=== PATIENT | male | born 1955 | race Caucasian/White ===

== ENCOUNTER → 2016-03-04 | Outpatient (CLI) | payer BC ==
[~2016-03-04] MED LIST: ATOR-26 PO; DOCU100C31 PO; METO25TA56 PO; TAMS0.4C38 PO; lisinopril/hctz PO
[2016-03-04 14:33] LABS: ALT/SGPT 33 U/L (12-78); BLOOD UREA NITROGEN 12 mg/dl (7-18); BUN/CREATININE RATIO 10.5 (10-20); CALCIUM 9.3 mg/dl (8.5-10.1); CARBON DIOXIDE 33 mmol/L (21-32); CHLORIDE 100 mmol/L (98-107); CHOLESTEROL 162 mg/dl (0-200); GLUCOSE 94 mg/dl (70-99); POTASSIUM 3.7 mmol/L (3.5-5.1); SODIUM 142 mmol/L (136-145); TRIGLYCERIDES 106 mg/dl (0-150); VERY LOW DENSITY LIPOPROT CALC 21 mg/dl
[2016-03-04 14:39] LABS: AST/SGOT 19 U/L (15-37); CHOLESTEROL/HDL RATIO 3.4; HDL CHOLESTEROL 47 mg/dl; LDL CHOLESTEROL CALCULATED 94 mg/dl; PROSTATE SPECIFIC ANTIGEN 0.644 ng/ml (0.000-4.000)
== END | disposition home or self-care (01) ==
LOC: C.LABBC 09:09
PROVIDERS: ATTEND Internal Medicine
DX: E78.5 Hyperlipidemia, unspecified (principal); I10 Essential (primary) hypertension; N40.0 Benign prostatic hyperplasia without lower urinary tract symptoms; N50.9 Disorder of male genital organs, unspecified

== ENCOUNTER 2023-01-30 09:09 | Observation (INO) ==
--- NOTE | 2023-01-01 09:46 | PAT Medication Instructions ---
Medication Instructions Date of Service January 01, 2023 Home Medications Medication Instructions Recorded atorvastatin 80 mg tablet 80 mg PO QPM #90 tabs 02/11/22 metoprolol tartrate 25 mg tablet 25 mg PO BID #180 tabs 02/11/22 aspirin 81 mg tablet,delayed release 81 mg PO QAM atorvastatin 80 mg tablet 80 mg PO QPM metoprolol tartrate 25 mg tablet 25 mg PO BID sildenafil 50 mg tablet 50 mg PO UD PRN amlodipine 5 mg tablet 5 mg PO DAILY [id number]-igmdhciqonwpy-gqhwwlsi 250 mg-250 mg-65 mg tablet (Excedrin Extra Strength) 1 - 2 tab PO Q6H PRN lisinopril 20 mg tablet 20 mg PO QAM multivitamin 1 cap PO DAILY Continue as directed amlodipine 5 mg tablet 5 mg PO DAILY ASK your surgeon for instructions [id number]-[id number]-rpozjtmz 250 mg-250 mg-65 mg tablet (Excedrin Extra Strength) 1 - 2 tab PO Q6H PRN ASK your prescriber and surgeon aspirin 81 mg tablet,delayed release 81 mg PO QAM DO NOT take the morning of surgery sildenafil 50 mg tablet 50 mg PO UD PRN lisinopril 20 mg tablet 20 mg PO QAM multivitamin 1 cap PO DAILY Take morning of surgery With a small sip of water, OTHERWISE NOTHING TO EAT OR DRINK AFTER MIDNIGHT: metoprolol tartrate 25 mg tablet 25 mg PO BID Take evening before surgery atorvastatin 80 mg tablet 80 mg PO QPM metoprolol tartrate 25 mg tablet 25 mg PO BID Other Notes If you have any questions please call us at [phone] or [phone] or [phone] or [phone]
--- NOTE | 2023-01-06 12:14 | Anesthesiology Consultation ---
Date of Service January 06, 2023 Assessment & Plan (1) Encounter for pre-operative examination: - Infectious disease screening: Per assessment on 12/30/22: No known infectious disease contacts or current infectious disease symptoms (does report chronic issues with congestion at baseline- no recent changes). No noted Covid positive test result in past 90 days. - Outpatient joint assessment: Pt currently scheduled for inpatient pathway. If surgeon requests review for outpatient joint pathway, patient is not recommended candidate for outpatient joint program from anesthesia standpoint based on available information. - Cardiology visit (09/29/22): "..Known chronic total occlusion of the RCA. No anginal symptoms. His blood pressure and heart rate are at target. He will continue aspirin 81 mg daily, atorvastatin 80 mg daily, lisinopril 20 mg daily, and metoprolol tartrate 25 mg p.o. twice daily. He is not taking Ranexa at this time. He will keep the medication in case he has onset of angina.. High intensity statin therapy ongoing with atorvastatin 80 mg daily. We will check annual lipid panel.. Hypertension.. Blood pressure is very well controlled at this time. Continue lisinopril, amlodipine, and metoprolol at current doses" - Hyperkalemia: Potassium 5.4 on preop labs. Workload note written to PCP regarding hyperkalemia. PCP response (01/06/23): "Please inform patient potassium was high on today's bloodwork. Ensure he is not taking any potassium supplements (if so should stop). Encourage him to increase hydration and limit high potassium foods (potatoes tomatoes bananas oranges). Ask him to recheck blood work in 1 week. Please order renal function panel for one week from today. If K remains high on recheck, we may need to adjust lisinopril. Otherwise, if normalizes, no need to change" > Awaiting PCP-ordered repeat labs. Chart Review Chart Review: Patient seen in Pre Admission Testing Teaching & Discussion Pre-Anesthesia Teaching/Discussion Notes: Instructed NPO after midnight before surgery,except medications with 15 cc of water. Medication instructions provided according to the PAT guidelines. History Surgery Operation Date: 01/30/23 09:00 Proposed Procedures p Left Reverse Total Shoulder Arthroplasty - Syed Powell, DO Height/Weight Height: 5 ft 11 in Weight: 80.3 kg Allergies Allergy/AdvReac Type Severity Reaction Status Date / Time No Known Allergies Allergy Verified 12/30/22 13:29 Medications Home Medications Medication Instructions Recorded Confirmed Last Taken aspirin 81 mg tablet,delayed 81 mg PO QAM 02/11/22 12/30/22 Unknown release atorvastatin 80 mg tablet 80 mg PO QPM #90 tabs 02/11/22 12/30/22 Unknown metoprolol tartrate 25 mg tablet 25 mg PO BID #180 tabs 02/11/22 12/30/22 Unknown sildenafil 50 mg tablet 50 mg PO UD PRN Sexual Activity 09/29/22 12/30/22 Unknown amlodipine 5 mg tablet 5 mg PO DAILY 12/30/22 12/30/22 Unknown bupatle-jksacyxwdntjx-pptwinph 250 1 - 2 tab PO Q6H PRN headaches 12/30/22 12/30/22 Unknown mg-250 mg-65 mg tablet (Excedrin Extra Strength) lisinopril 20 mg tablet 20 mg PO QAM 12/30/22 12/30/22 Unknown multivitamin 1 cap PO DAILY 12/30/22 12/30/22 Unknown Past Medical History Medical History Nasal congestion Chronic, previous ENT evaluation No change from baseline Osteoarthritis Torn muscle + calcium buildup (left shoulder) Bladder diverticulum Coronary artery disease Cardiac cath 03/2022 (Positive stress test, [place])- Chronic total occlusion of the RCA with distal collateralization to the PDA and posterolateral branch (consistent with findings on stress test), Mild nonocclusive CAD in left coronary system. Medical management recommended. Hyperlipidemia HTN (hypertension) Claustrophobia Tubular adenoma of colon Hx Exercise / Class Metabolic Activity II 4-5 Yardwork/Stairs/Walk up hill (2 miles on treadmill walking/day) Past Family History Family History Mother Myocardial infarction Ovarian cancer Uncle Stroke Denies family history of Prostate cancer Breast cancer Lung cancer Colorectal cancer Past Surgical History Surgical History History of eye surgery PRK (Rx1, Lx2) History of transurethral resection of prostate History of cardiac cath 03/2022 (Positive stress test, [place])- Chronic total occlusion of the RCA with distal collateralization to the PDA and posterolateral branch (consistent with findings on stress test), Mild nonocclusive CAD in left coronary system. Medical management recommended. H/O tooth extraction H/O colonoscopy Past Anesthesia History No Hx of Anesthesia Complications and No Family Hx of Anesthesia Complications History of PONV No Hx of PONV and No Hx of Motion Sickness Social History Smoking Status: Never smoker Do You Dip or Chew Tobacco: Yes (2 pouches daily- Advised none DOS) Hx Alcohol Use: Yes (Hx social- none current) Hx Substance Use: No substance use type: does not use Review of Systems Hx heart palpitations- no recent issues. Chronic congestion- unchanged, at baseline. Patient denies chest pain, shortness of breath, dyspnea on exertion, fever, chills, cough, wheezing. Physical Exam Vital Signs VITALS BP 117/71 P 70 TEMP 98.5 SP02 98%RA RESP 18 PHYSICAL Full cervical extension range of motion. Full TMJ range of motion. TMD 3 finger breaths Mallampati Score 1 Dentition: upper full denture plate, edentulous Lungs: clear throughout to auscultation Cardiac: regular rate and rhythm, no murmurs noted Spine: normal Carotid arteries: negative bruit Extremities: no LE edema Short zepeda (advised to trim/clean prior to surgery) Lab Results Anesthesia Preop Results Results Anesthesia Widget: WBC 7.55 K/ul (4.8-10.8) 01/06/23 Hgb 15.5 g/dl (14.0-18.0) 01/06/23 Hct 45.6 % (42.0-52.0) 01/06/23 Plt 190 K/uL (130-400) 01/06/23 Na 137 mmol/L (136-145) 01/06/23 K 5.4 mmol/L (3.5-5.1) H 01/06/23 Cl 102 mmol/L (98-107) 01/06/23 CO2 31 mmol/L (21-32) 01/06/23 BUN 10 mg/dl (6-23) 01/06/23 Creat 0.95 mg/dl (0.6-1.4) 01/06/23 Glucose Level 95 mg/dl (70-99(Fasting)) 01/06/23 PT 11.3 Seconds (9.0-12.0) 01/06/23 PTT 28.0 Seconds (21.0-31.0) 01/06/23 INR 1.0 (0.9-1.1) 01/06/23 Blood Type B Positive 01/06/23 Antibody Screen NEGATIVE 01/06/23 Testing Electrocardiogram Date: 06/23/22 Findings: + NSR @ (81) Chest X-Ray Date: 01/06/23 Findings: + NAD Echocardiogram Date: 03/24/22 "This was essentially a normal study " EF 50-55%. Borderline apical wall hypokinesis. Mild [place]. Cardiac Catheterization Date: 03/27/22 Summary: 1. Chronic total occlusion of the RCA with distal collateralization to the PDA and posterolateral branch. This is consistent with findings on stress test. 2. Mild nonocclusive coronary disease in the left coronary system. 3. Recommend guideline directed medical therapy for secondary prevention of coronary disease to include; low-dose aspirin, high intensity statin therapy, beta-patrice, and DAYRON inhibitor/ARB as tolerated. In addition, recommend titrating up the antianginal regimen to try to reduce his symptoms. Other Testing Carotid doppler Date: 02/24/22 <50% B/L ICA stenosis. Antegrade flow b/l vertebral arteries. Exercise stress Date: 03/03/22 1. Exercise stress test to 95% MPHR negative for chest pain. 2. ST depressions and ST changes following exercise are diagnostic of myocardial ischemia. 3. Hemodynamic response to exercise was normal. 4. No exercise induced arrhythmias. Myocardial stress test Date: 03/11/22 1. Raw data analysis demonstrates increased gallbladder uptake and mild anterior soft tissue attenuation. This is a good quality study. 2. Gated MPI demonstrates normal wall motion and EF of 64% 3. There is a large in size, mild intensity, partially reversible MPI defect involving the inferior, inferoseptal, inferolateral, and apical myocardium. These findings suggest myocardial infarction with mild to moderate wendi-infarct ischemia. Summary: This is considered an intermediate to high risk stress test. No prior MPI studies for comparison. Recommend consider definitive evaluation by coronary angiography. Discussed with cardiology. Cardiac Event monitor Date: 04/17/22 Analysis length: 13-days. Rare PACs/rare PVCs. ST (max 141bpm). SB (min 41bpm). No pauses > 2 secs or high grade AVB. Reported chest pain, fatigue 2 times which correlated to NSR.
[~2023-01-30 09:09] MED LIST changes: +ACETAMINOPHEN 500 MG TAB PO SCH; -ATOR-26 PO; +BUPIVACAINE 0.5 % 5 MG/1 ML PF 10ML VIAL ONE; -DOCU100C31 PO; +FAMOTIDINE 20 MG TAB PO SCH; +GABAPENTIN 300 MG CAP PO SCH; +LR 15ML/HR IV SCH; +LR 60ML/HR IV SCH; -METO25TA56 PO; +ORTHO JOINT MIX INFIL SCH; -TAMS0.4C38 PO; +TRANEXAMIC ACID 1,000 MG **IV Intra-op IV SCH; +TRANEXAMIC ACID 1,000 MG **IV Pre-op IV SCH; +ceFAZolin 2000MG 2,000 MG/15 ML SYR IV SCH; +dexAMETHasone 4 MG TAB PO SCH; -lisinopril/hctz PO
[2023-01-30] MEDS ORDERED: LIDOCAINE 2% 2 ML VIAL/AMP(20MG/ML) INFIL ONE (09:19)
[2023-01-30] MEDS ORDERED: MIDAZOLAM HCL 1 MG/ML 2ML VIAL ONE (09:19)
[2023-01-30] MEDS ORDERED: PROPOFOL IV EMULSION 10 MG/ML 20 ML VIAL IV ONE (09:19)
[2023-01-30] MEDS ORDERED: ONDANSETRON INJ 2 MG/ML 2 ML VIAL ONE (09:20)
[2023-01-30] MEDS ORDERED: fentaNYL citrate PF 100 MCG/2 ML VIAL ONE (09:20)
--- NOTE | 2023-01-30 09:38 | History & Physical Bridge Note ---
Date of Service January 30, 2023 History & Physical Bridge Note I have examined the patient, reviewed the History & Physical and in the interval since the performance of the History & Physical I have noted the following changes of clinical significance: no changes noted
[2023-01-30] MEDS ORDERED: ORTHO JOINT ANESTHETIC ONE (09:59)
[2023-01-30] MEDS ORDERED: PROMETHAZINE HCL 6.25 MG in SODIUM CHLORIDE 0.9% 50 ML IV PRN (10:28)
[2023-01-30] MEDS ORDERED: ATROPINE SULFATE 0.1 MG/ML 10ML SYR IV PRN (10:28)
[2023-01-30] MEDS ORDERED: KETOROLAC 30 MG/ML VIAL IV PRN (10:28)
[2023-01-30] MEDS ORDERED: fentaNYL citrate PF 100 MCG/2 ML VIAL IV PRN (10:28)
[2023-01-30] MEDS ORDERED: PHENYLEPHRINE HCL 10 MG/ML VIAL ONE (11:01)
[2023-01-30] MEDS ORDERED: ePHEDrine sulfate 50 MG/ML AMP ONE (11:01)
[2023-01-30] MEDS ORDERED: ROCURONIUM BROMIDE 10 MG/ML 5 ML VIAL IV ONE (11:01)
--- NOTE | 2023-01-30 11:44 | Operative Report ---
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 A tenodesis was opted. This was a separate and distinct portion of the procedure. For these reasons, a CPT code modifier 59 will be added to this case. Implants used: I used a [employer] Comprehensive reverse total shoulder arthroplasty system with a size 11 press fit micro humeral stem, a +3 offset humeral tray and a standard humeral bearing, a 25 mm baseplate with a 6.5 mm central screw and superior and inferior locking screws, and a size 36 mm eccentric glenosphere. Venkat arrived at [facility] for the above procedure. He was seen in the preoperative holding area and the operative extremity was identified and signed. He was given a preoperative antibiotic, TXA, and an interscalene nerve block. He was taken back to the operating room, laid on table in supine position, and put under general anesthesia. He was then put into the beachchair position. The shoulder was then prepped and draped in sterile fashion. A timeout was done and the patient and the operative extremity was properly identified. A deltopectoral approach was used. Dissection was taken down through the fascia and the deltoid was retracted laterally and the conjoined tendon was retracted medially. The anterior shoulder was exposed. The biceps groove was opened up and the biceps tendon was examined extensively. The biceps tendon demonstrated enlargement and inflammatory changes consistent with longstanding inflammation in the context of osteoarthritis and cuff arthropathy. The long head of the biceps tendon was then tenodesed to the upper border of the pectoralis major. This was a separate and distinct portion of the procedure. The subscapularis was then directly released off the lesser tuberosity with a peel technique. The inferior capsule was released and the humeral head was dislocated. A canal finding reamer was sent down the center of the humeral canal. Sequential reaming up to a size 11 reamer was done. Off that reamer, a proximal humeral resection guide was placed. The proximal humerus was resected at 135 of inclination and 25 of retroversion. Osteophytes were then removed and the glenoid was exposed. Time was spent doing a complete capsular and labral release. The glenoid guide was then placed in the inferior aspect of the glenoid. A 3.2 mm Steinmann pin was then placed into the glenoid vault at 10 of inclination. The glenoid baseplate was then reamed. The final size 25 mm baseplate was then impacted in the place. A 6.5 mm central screw was then placed followed by superior and inferior locking screws. A 36 mm eccentric glenosphere was then impacted into place. Surrounding soft tissues were then injected with 100 cc an orthopedic pain control cocktail. The proximal humerus was then exposed. Sequential broaching of the humerus up to a size 11 broach was done. Off that broach a +3 offset humeral tray was trialed. The shoulder was then reduced, brought through a full range of motion, and felt to be stable. The shoulder was then dislocated and the broach was removed. The final size 11 micro press-fit humeral stem was then impacted into place. A standard humeral bearing was then snapped onto a +3 offset humeral tray. The humeral tray was then impacted onto the humeral stem. The shoulder was once again reduced, brought through a full range of motion, and felt to be stable. The subscapularis was then tenodesed back to the lesser tuberosity with transosseous FiberWire sutures and side to side sutures with the arm in 45 of external rotation. A dilute betadyne lavage was then done for 3 minutes. The joint was then irrigated with normal saline solution. Hemostasis was obtained. The interval was closed with 2-0 Vicryl suture. The skin was then closed with 2-0 Vicryl and timi. A Silverlon dressing was placed and the arm was rested in a regular arm sling. He was then extubated and transferred to a hospital bed. He taken to the postanesthesia care unit in stable condition. He tolerated the procedure well. Syed Parekh PA-C, was present for the entire procedure. He was critical for patient positioning, prepping, draping, retraction exposure, wound closure and application of sterile dressing. I attest to the content of the Intraoperative Record and any orders documented therein. Any exceptions are noted below.
[2023-01-30] MEDS ORDERED: GLYCOPYRROLATE 0.2 MG/ML VIAL ONE (11:48)
[2023-01-30] MEDS ORDERED: NEOSTIGMINE METHYLSULFATE 1 MG/ML 10ML VIAL ONE (11:48)
--- NOTE | 2023-01-30 12:16 | XRay Report ---
LEFT SHOULDER 2 VIEWS CLINICAL HISTORY: Postoperative examination. FINDINGS: 2 portable views of the left shoulder are compared to study dated 09/29/2022. A left shoulde r arthroplasty is in near anatomic alignment. No acute fracture is seen. The acromioclavicular joint is maintained. Skin clips, subcutaneous gas, and soft tissue swelling overlying the left shoulder are expected postsurgical changes. The visualized left lung parenchyma appears clear. IMPRESSION: Expected postoperative findings status post left shoulder arthroplasty. No acute fracture is seen. Electronically signed by: Luis Miguel Aggarwal M.D. 01/30/2023 12:14 PM
--- NOTE | 2023-01-30 12:48 | Anesthesiology Progress Note ---
Date of Service January 30, 2023 Anesthesia Post Procedure Vital Signs Vital Signs: Temp Pulse Resp BP Pulse Ox O2 Del Method O2 Flow Rate 01/30/23 12:30 36.3 C L 63 16 117/60 95 Room Air 01/30/23 12:20 70 16 127/63 94 Oxymask 4 01/30/23 12:10 76 16 120/60 100 Oxymask 6 01/30/23 12:03 36.1 C L 83 16 124/77 96 Oxymask 6 01/30/23 09:58 36.8 C 59 L 18 136/76 100 Room Air Transfer of Care Handoff Completed per policy Notes Mental Status: alert / awake / arousable Patient Amnestic to Procedure: Yes Nausea / Vomiting: adequately controlled Pain: adequately controlled Airway Patency, RR, SpO2: stable & adequate BP & HR: stable & adequate Hydration State: stable & adequate Anesthetic Complications: no major complications apparent
[2023-01-30] MEDS ORDERED: MAGNESIUM HYDROXIDE SUSP 30 ML UDC PO PRN (13:07)
[2023-01-30] MEDS ORDERED: oxyCODONE HCL IR 5 MG TAB (IMMEDIATE RELEASE) PO PRN (13:07)
[2023-01-30] MEDS ORDERED: METOCLOPRAMIDE HCL INJ 5 MG/ML 2 ML VIAL IV PRN (13:07)
[2023-01-30] MEDS ORDERED: NALOXONE HCL 0.4 MG/1 ML VIAL/CARP IV PRN (13:07)
[2023-01-30] MEDS ORDERED: bisacodyL 10 MG SUPP PR PRN (13:07)
[2023-01-30] MEDS ORDERED: ONDANSETRON INJ 2 MG/ML 2 ML VIAL IV PRN (13:07)
[2023-01-30] MEDS ORDERED: HYDROmorphone INJ 0.5 MG/0.5 ML SYR IV PRN (13:07)
[2023-01-30] MEDS ORDERED: COUGH DROP (SUGAR FREE) LOZ 24 LOZ/1 BOX BUCCAL ONE (13:20)
[2023-01-30] MEDS: KETOROLAC 30 MG/ML VIAL IV SCH ×2 (14:06→19:38)
[2023-01-30] MEDS: SODIUM CHLORIDE 0.9% 1,000 ML IV SCH (14:06)
[2023-01-30] MEDS: ACETAMINOPHEN 500 MG TAB PO SCH ×2 (14:06→21:16)
[2023-01-30] MEDS: ceFAZolin 2000MG 2,000 MG/15 ML SYR IV SCH (17:25)
[2023-01-30] MEDS ORDERED: SENNA 8.6 MG TAB PO SCH (21:00)
[2023-01-30] MEDS ORDERED: ATORVASTATIN 40 MG TAB PO SCH (21:00)
[2023-01-30] MEDS: METOPROLOL TARTRATE 25 MG TAB PO SCH (21:16)
[2023-01-30] MEDS: DOCUSATE SODIUM 100 MG CAP PO SCH (21:17)
[2023-01-31] MEDS: ceFAZolin 2000MG 2,000 MG/15 ML SYR IV SCH (01:11)
[2023-01-31] MEDS: KETOROLAC 30 MG/ML VIAL IV SCH ×2 (01:11→06:35)
[2023-01-31] MEDS: SODIUM CHLORIDE 0.9% 1,000 ML IV SCH (01:24)
[2023-01-31] MEDS: ACETAMINOPHEN 500 MG TAB PO SCH (05:56)
[2023-01-31] MEDS ORDERED: TAMSULOSIN HCL 0.4 MG CAP PO ONE (06:30)
--- NOTE | 2023-01-31 06:58 | Orthopedic Progress Note ---
Date of Service January 31, 2023 Assessment & Plan (1) Status post reverse total replacement of left shoulder: Overall he is doing well. He is not having much pain in the left shoulder. He has been up and ambulating. He will be seen by physical therapy today for ambulation and range of motion exercises. He has been voiding a little bit on his own. He has not been voiding completely but he has had this issue before. He says he feels safe going home today. His is an RN and can help him at home. We will discharge him to home today. He will follow-up with orthopedics in 2 weeks. Isidro Robledo was seen and examined at bedside this morning. Overall is doing fairly well. Is not having much pain in the left shoulder. Has been up and ambulating in the hallways. He did have a little trouble voiding last night. He was given some Flomax. Otherwise, he has no complaints.. Review of Systems All systems reviewed & are unremarkable except as noted in HPI & below. Physical Exam On physical examination left shoulder, the dressing is clean and dry. He is wearing his sling as instructed. He has active motion of his hand and his wrist.. Results & Data Results & Data Laboratory Results . Diagnostic Findings X-rays of the left shoulder show the prosthesis to be in anatomic alignment without any evidence of fracture complication, or loosening.. PG Care Time/CCT Total # of Minutes Spent Total Time Spent with Patient: Total time spent is greater than 50% in coordination of care (as documented) at patient's floor/unit and/or counseling patient: Coding Level of Care Code 34196 Post Operative Follow-Up Diagnoses Status post reverse total replacement of left shoulder Z96.612
--- NOTE | 2023-01-31 06:59 | Discharge Summary ---
Date of Service January 31, 2023 Principal Diagnosis Same as "Discharge Diagnosis" noted below under Discharge Instructions. Discharge Exam On physical examination left shoulder, the dressing is clean and dry. He is wearing his sling as instructed. He has active motion of his hand and his wrist.. Discharge Data Procedures Performed Operation Date: 01/30/23 11:00 Actual Procedures p Left Reverse Total Shoulder Arthroplasty(Left) - Syed Powell DO Ordered Studies 01/30/23 05:00 US - OR guided needle placemen Routine Hospital Course (1) Status post reverse total replacement of left shoulder: On January 30, 2023 Venkat arrived at [facility] and underwent a left reverse shoulder replacement without complication. He had a general anesthetic and a left interscalene nerve block. Postoperatively he was placed in an arm sling and transferred to the general orthopedic floors. His hospital course was uneventful. He had his little trouble voiding the first night. He was given some Flomax and that did help some. On postop day #1, his vital signs were stable and his pain was well-controlled. He was able to participate well with physical therapy doing ambulation and range of motion exercises. He was then discharged home. He will follow-up with orthopedics in 2 weeks. PG Care Time/CCT Total # of Minutes Spent Total Time Spent with Patient: Total time spent is greater than 50% in coordination of care (as documented) at patient's floor/unit and/or counseling patient: Discharge Plan Discharge Items Patient Disposition: Home - Self-Care Reason For Visit: Degenerative Joint Disease Left Shoulder Discharge Diagnosis: Left reverse shoulder replacement Activity: Per Instructions section Non-emergency contact: Surgeon Call non-emergency contact if: your wound has increased redness and your wound has increased drainage Follow-up/Referrals: Kenzie Vega MD [Primary Care Provider] - Diet: Regular Addtl Attending Provider Instructions: Activity and Therapy Recommendations: * If you are using [facility] then therapy will be provided at your home until they feel you have accomplished all of your goals. * If you are using [facility] then Physical Therapy will be provided until they feel you are ready to start Outpatient Physical Therapy. * If you are not using home therapy then Outpatient Physical Therapy should start about 3-5 days from your day of surgery. Therapy will last about 8-12 weeks * Wear your sling for 3 weeks, unless otherwise instructed. You may remove your sling to shower and to dress, but otherwise, you should be in your sling at all times, including while sleeping * The shoulder replacement is very stable and you can use your hand while in the sling * You were shown a series of exercises in the hospital. Do these exercises daily including the exercises you were shown in physical therapy. Medications: * Narcotic You will likely be sent home from the hospital with a prescription for the narcotic pain medication that worked best throughout your stay. * Cefadroxil -take the antibiotic twice a day for 10 days to help prevent infection. * Other medications may be prescribed for specific circumstances. If you have any questions, please call the office at . * Resume previous home medications unless otherwise instructed Dressing Care: Leave the Silverlon dressing in place for 7 days. After 7 days you may remove the dressing. If the incision is not draining then you may leave the timi open to air. If there is a little bit of drainage or if the timi are getting stuck on your clothing then cover the incision with a dry dressing. The timi will be removed at your 2 week follow-up appointment. Showering: You may shower with the Silverlon dressing in place. Do not let the shower spray hit the dressing directly. Pat the Silverlon dressing dry. If the dressing becomes wet underneath, then simply remove the dressing. Keep the incision dry until you are 7 days out from the day of surgery. After 7 days you may remove the Silverlon dressing and shower with the timi exposed. Let soapy water run over the timi and pat them dry. Do not scrub or soak the incision. Things To Watch For: * Drainage from the incision site that occurs more than one week after your surgery. * Increased redness at the incision site. * Fever above 102 degrees Fahrenheit. * Unusual chest pain or shortness of breath. * Call [facility] at with any of the above problems Follow-Up Visit: Follow-up with Dr. Powell's PA (Syed Parekh) 2-3 weeks after your day of surgery. He will remove your timi and answer any questions. If you have any additional questions or concerns, Dr Powell is usually in the office at the same time and will be available An appointment was probably scheduled when you signed-up for surgery in the office. If you have any questions call More detailed instructions as well as Frequently Asked Questions were provided in a folder by our office when you signed-up for surgery. Please review these instructions when you get home. If you have any further questions or concerns, please feel free to call the office at [phone] Pending Studies at Discharge: No Stand-Alone Forms: [facility], Sm[facility] Cessation Medications and DC Order Prescriptions: New oxycodone 5 mg Tablet 5 mg PO Q4H PRN (Reason: pain) Qty: 20 0RF Continued amlodipine 5 mg tablet 5 mg PO DAILY Qty: 90 0RF atorvastatin 80 mg tablet 80 mg PO QPM Qty: 90 0RF lisinopril 20 mg tablet 20 mg PO QAM Qty: 90 0RF metoprolol tartrate 25 mg tablet 25 mg PO BID Qty: 180 0RF sildenafil 50 mg tablet 50 mg PO UD PRN (Reason: Sexual Activity) aspirin 81 mg tablet,delayed release (DR/EC) 81 mg PO QAM multivitamin Capsule 1 cap PO DAILY Patient Comments: rare/not current Excedrin Extra Strength 250-250-65 mg Tablet 1 - 2 tab PO Q6H PRN (Reason: headaches) Discharge Orders: Discharge Order (Routine); Ordered 01/31/23 Ordered By: Syed Powell Admission Data Admit Date/Time: 01/30/23 11:59 Attending Provider: Syed Powell Admit Provider: Syed Powell Primary Care Provider: Kenzie Vega
[2023-01-31] MEDS ORDERED: dexAMETHasone 4 MG TAB PO SCH (08:00)
[2023-01-31] MEDS: METOPROLOL TARTRATE 25 MG TAB PO SCH (08:16)
[2023-01-31] MEDS: DOCUSATE SODIUM 100 MG CAP PO SCH (08:16)
[2023-01-31] MEDS ORDERED: MULTIVITAMIN TAB PO SCH (09:00)
[2023-01-31] MEDS ORDERED: amLODIPine BESYLATE 5 MG TAB PO SCH (09:00)
[2023-01-31] MEDS ORDERED: lisinopril 20 MG TAB PO SCH (09:00)
[2023-01-31] MEDS ORDERED: ASPIRIN 81 MG ECTAB PO SCH (09:00)
== END 2023-01-31 12:11 | disposition home health service (06) ==
LOC: 3N 09:09 → ASU 09:09